=== PATIENT | female | born 2000 | race Caucasian/White ===

== ENCOUNTER → 2019-02-09 | Outpatient (CLI) | payer OTHER ==
[2019-02-09 09:18] LABS: Basophils # (auto) 0 uL; Basophils % (auto) 0.4 % (0.0-2.0); Eosinophils # (auto) 0 uL; Eosinophils % (auto) 0.4 % (0.0-7.0); Hematocrit 45.6 % (36.0-46.0); Hemoglobin 15.7 g/dL (12.2-16.2); Lymphocytes # (auto) 1.9 uL; Lymphocytes % (auto) 23.1 % (10.0-50.0); Mean Corpuscular Hemoglobin 31.7 pg (28.0-32.0); Mean Corpuscular Hgb Conc. 34.3 g/dL (32.0-36.0); Mean Corpuscular Volume 92.5 fL (80.0-100.0); Monocytes # (auto) 0.4 uL; Monocytes % (auto) 4.4 % (0.0-12.0); Neutrophils % (auto) 71.7 % (37.0-80.0); Platelet Count (auto) 393 10^3/uL (140-450); Red Blood Cells 4.93 10^6/uL (4.0-5.20); White Blood Cell 8.3 10^3/uL (4.4-10.8)
[2019-02-09 10:12] LABS: Albumin 4.4 g/dL (3.4-5.0); Calcium 9.2 mg/dL (8.5-10.1); Potassium 3.6 mmol/L (3.5-5.1)
[2019-02-09 10:15] LABS: BUN/Creatinine Ratio 12.9
[2019-02-09 10:18] LABS: Bilirubin, Total 0.5 mg/dL (0.2-1.0); Total Protein 8.5 g/dL (6.4-8.2)
== END | disposition home or self-care (01) ==
LOC: LAB 08:47
PROVIDERS: ATTEND Physician Assistant
DX: Z00.00 Encounter for general adult medical examination without abnormal findings (principal); J30.2 Other seasonal allergic rhinitis; F41.9 Anxiety disorder, unspecified; F95.9 Tic disorder, unspecified
CPT/HCPCS: 36415; 80053; 80061; 85025

== ENCOUNTER 2021-12-02 22:09 | Emergency (ER) | payer MEDICAID, OTHER ==
[~2021-12-02] VITALS: Ht 167.6 cm; Wt 57.3 kg
[2021-12-02 22:30] VITALS: BP 141/88
[2021-12-02 22:51] LABS: Urine Bacteria NONE SEEN /hpf (None Seen); Urine Blood 1+ /uL (Negative); Urine Mucus FEW (None Seen); Urine Specific Gravity 1.025 (1.001-1.035); Urine WBC 12 /hpf (0 - 5)
== END 2021-12-02 23:54 | disposition left against medical advice (07) ==
LOC: ER 22:09
DX: R50.9 Fever, unspecified (principal); Z53.21 Procedure and treatment not carried out due to patient leaving prior to being seen by health care provider; Z20.822 Contact with and (suspected) exposure to COVID-19
CPT/HCPCS: 36415; 81001

== ENCOUNTER 2024-06-10 19:52 | Inpatient (IN) | payer MEDICAID ==
[~2024-06-10] VITALS: Ht 167.6 cm; Wt 58.1 kg
[2024-06-10 20:28] LABS: Sodium 141 mmol/L (136-145)
[2024-06-10 20:29] LABS: Anion Gap 13 (5-15); Basophils # (auto) 0.1 10 ^3/uL (0-0.2); Basophils % (auto) 0.5 % (0.0-2.0); Eosinophils # (auto) 0.1 10 ^3/uL (0-0.8); Eosinophils % (auto) 0.3 % (0.0-7.0); Hematocrit 43.9 % (36.0-46.0); Hemoglobin 14.7 g/dL (12.2-16.2); Lymphocytes # (auto) 3.3 10 ^3/uL (0.4-5.4); Lymphocytes % (auto) 17.2 % (10.0-50.0); Mean Corpuscular Hgb Conc. 33.6 g/dL (32.0-36.0); Mean Corpuscular Volume 92.1 fL (80.0-100.0); Monocytes # (auto) 0.7 10 ^3/uL (0-1.3); Monocytes % (auto) 3.6 % (0.0-12.0); Neutrophils # (auto) 15.1 10 ^3/uL (1.6-8.6); Neutrophils % (auto) 78.4 % (37.0-80.0); Platelet Count (auto) 412 10^3/uL (140-450); Red Blood Cells 4.76 10^6/uL (4.0-5.20); Red Cell Distribution Width 13.5 % (11.8-14.3); White Blood Cell 19.3 10^3/uL (4.4-10.8)
[2024-06-10 20:30] LABS: Calcium 10.1 mg/dL (8.7-10.4)
[2024-06-10 20:34] LABS: BUN/Creatinine Ratio 14.7 (10.0-20.0); Blood Urea Nitrogen 15 mg/dL (9-23)
[2024-06-10 20:35] LABS: Urine Bacteria FEW /hpf (None Seen); Urine Blood Negative /uL (Negative); Urine Clarity Turbid (Clear); Urine Color Light-Yellow (Yellow); Urine Mucus FEW (None Seen); Urine Protein, UAD Negative (Negative); Urine Specific Gravity 1.022 (1.001-1.035); Urine Squamous Epithelial Cell MOD /hpf (<5); Urine Urobilinogen Normal (Negative); Urine WBC 4 /HPF (0-5); Urine pH 5.5 (5.0-9.0)
[2024-06-10 20:35] LABS: Carbon Dioxide 19 mmol/L (20-31); Chloride 109 mmol/L (98-107); Glucose 133 mg/dL (74-106); Potassium 3.1 mmol/L (3.5-5.1)
--- NOTE | 2024-06-10 20:38 | ED.PDOC ---
History of Present Illness HPI Comments 23 y/o F, with a history of anxiety, presents with c/o chest and bilateral arm pain, today. Patient endorses on sudden and unprovoked onset of sternal chest pain that radiates to both of her arms at around 1900, this evening. She reports pain being heavy and burning in quality and having it before in the past. Patient admits to having similar pain the past, with last onset associated with ED visit resulting in her eloping prior to any significant findings being made then. She denies any shortness of breath, dizziness, nausea, vomiting, or other associated symptoms or modifiers at this time. Chief Complaint: Chest Pain Time Seen by MD: 20:10 Reviewed Notes: Nurses Notes, Medications, Allergies Allergies: Coded Allergies: NO KNOWN ALLERGIES (Unverified , 12/02/21) Information Source: Patient Mode of Arrival: Ambulatory Severity: Moderate Timing: Hours Duration: Since onset Prehospital treatment: None Past Medical History PAST MEDICAL HISTORY: Anxiety Surgical History: Denies all surgeries CERTIFIED MEDICAL TRANSCRIPTIONIST History: Denies all CERTIFIED MEDICAL TRANSCRIPTIONIST Hx Family History Family History: Unknown Social History Smoker: Non-Smoker Alcohol: Denies ETOH Use Drugs: Denies Drug Use Lives In: Home All Other Systems: Reviewed and Negative (negative unless otherwise stated in HPI) Physical Exam General Appearance: No Apparent Distress, Normal HEENT: Normal ENT Inspection, Pharynx Normal, TMs Normal Neck: Full Range of Motion, Non-Tender, Normal, Normal Inspection Respiratory: Chest Non-Tender, Lungs Clear, No Accessory Muscle Use, No Respiratory Distress, Normal Breath Sounds Cardiovascular: No Edema, No JVD, No Murmur, No Gallop, Normal Peripheral Pulses, Regular Rate/Rhythm Breast Exam: Deferred Gastrointestinal: No Organomegaly, Non Tender, No Pulsatile Mass, Normal Bowel Sounds, Soft Genitalia: Deferred Pelvic: Deferred Rectal: Deferred Extremities: No calf tenderness, Normal capillary refill, Normal inspection, Normal range of motion, Non-tender, No pedal edema Musculoskeletal : Apperance: Normal Neurologic: Alert, rn clinical II-XII nml as Tested, No Motor Deficits, Normal Affect, Normal Mood, No Sensory Deficits Cerebellar Function: Normal Reflexes: Normal Skin: Dry, Normal Color, Warm Lymphatic: No Adenopathy Was a procedure done? Was a procedure done?: No Differential Dx Considerations may include: WI, Anxiety, ACS, costochondritis, pericarditis, among others X-Ray, Labs, Meds, VS Vital Signs Date Time Temp Pulse Resp B/P (MAP) Pulse Ox O2 Delivery O2 Flow Rate FiO2 06/11/24 00:11 157 100 Room Air 06/11/24 00:11 157 18 135/74 (94) 100 06/11/24 00:00 144 06/10/24 21:26 137 06/10/24 20:02 137 06/10/24 20:00 98.8 137 18 126/94 (105) 98 98.8 Lab Test 06/10/24 21:00 06/10/24 20:10 06/10/24 20:09 Range/Units Troponin I High Sensitivity < 3 L < 3 L </=34 ng/L Urine Color Light-yellow Yellow Urine Clarity Turbid H Clear Urine pH 5.5 5.0-9.0 Urine Specific [place] 1.022 1.001-1.035 Urine Protein Negative Negative Urine Ketones Negative Negative Urine Blood Negative Negative /uL Urine Nitrite Negative Negative Urine Bilirubin Negative Negative Urine Urobilinogen Normal Negative mg/dL Urine Leukocyte Esterase Trace Negative /uL Urine RBC 3 0 - 4 /hpf Urine Microscopic WBC 4 0-5 /HPF Urine Squamous Epithelial Cells Mod <5 /hpf Urine Bacteria Few H None Seen /hpf Urine Mucus Few None Seen Urine Glucose Normal Normal mg/dL Urine Test Negative Negative White Blood Count 19.3 H 4.4-10.8 10^3/uL Red Blood Count 4.76 4.0-5.20 10^6/uL Hemoglobin 14.7 12.2-16.2 g/dL Hematocrit 43.9 36.0-46.0 % Mean Corpuscular Volume 92.1 80.0-100.0 fL Mean Corpuscular Hemoglobin 31.0 28.0-32.0 pg Mean Corpuscular Hemoglobin Concent 33.6 32.0-36.0 g/dL Red Cell Distribution Width 13.5 11.8-14.3 % Platelet Count 412 140-450 10^3/uL Mean Platelet Volume 7.3 6.9-10.8 fL Neutrophils (%) (Auto) 78.4 37.0-80.0 % Lymphocytes (%) (Auto) 17.2 10.0-50.0 % Monocytes (%) (Auto) 3.6 0.0-12.0 % Eosinophils (%) (Auto) 0.3 0.0-7.0 % Basophils (%) (Auto) 0.5 0.0-2.0 % Neutrophils # (Auto) 15.1 H 1.6-8.6 10 ^3/uL Lymphocytes # (Auto) 3.3 0.4-5.4 10 ^3/uL Monocytes # (Auto) 0.7 0-1.3 10 ^3/uL Eosinophils # (Auto) 0.1 0-0.8 10 ^3/uL Basophils # (Auto) 0.1 0-0.2 10 ^3/uL Nucleated Red Blood Cells 0.0 % Sodium Level 141 136-145 mmol/L Potassium Level 3.1 L 3.5-5.1 mmol/L Chloride Level 109 H 98-107 mmol/L Carbon Dioxide Level 19 L 20-31 mmol/L Anion Gap 13 5-15 Blood Urea Nitrogen 15 9-23 mg/dL Creatinine 1.02 0.550-1.02 mg/dL Glomerular Filtration Rate Calc 78 >90 mL/min BUN/Creatinine Ratio 14.7 10.0-20.0 Serum Glucose 133 H 74-106 mg/dL Calcium Level 10.1 8.7-10.4 mg/dL Current Medications Medications (Trade) Dose Ordered Sig/Maria Isabel Route Start Time Stop Time Status Last Admin Al Hydrox/Mg Hydrox/Simethicone (Maalox Plus) 30 ml ONCE ONCE PO 06/10/24 20:30 06/10/24 20:31 DC 06/11/24 00:13 Famotidine (Pepcid Tablet) 20 mg ONCE ONCE PO 06/10/24 20:30 06/10/24 20:31 DC 06/11/24 00:14 Sodium Chloride 3,000 ml @ 1,000 mls/hr Q3H ONCE IV 06/11/24 00:15 06/11/24 03:14 06/11/24 00:15 Cefepime HCl 50 ml @ 12.5 mls/hr ONCE ONCE IV 06/11/24 00:30 06/11/24 04:29 06/11/24 01:35 Vancomycin HCl 200 ml @ 200 mls/hr ONCE ONCE IV 06/11/24 00:30 06/11/24 01:29 DC 06/11/24 00:30 Diphenhydramine HCl (Benadryl Injection) 25 mg ONCE ONCE IV 06/11/24 01:30 06/11/24 01:31 DC 06/11/24 01:[address] [address] Ph: [phone] DIAGNOSTIC IMAGING Diagnostic Imaging Report : [id number] Signed PATIENT: LG HUYNH ACCT: [id number] UNIT: [id number] : 2000 LOC: ER ROOM / BED: / AGE / SEX: 23 / F ADM STATUS: REG ER SERVICE 2316 ORDERING PHYSICIAN: BHUMIKA JACKSON MD PROCEDURE(s): CXR2 - CHEST TWO VIEWS ROUTINE REASON: chest pain ORDER NUMBER(s): [id number], ACCESSION NUMBER(s): [id number] EXAM: XY CHEST TWO VIEWS ROUTINE CLINICAL HISTORY: chest pain TECHNIQUE: Frontal and lateral views of the chest WID: COMPARISON: None FINDINGS: Lines and tubes: None Chest: The heart size and pulmonary vasculature is within normal limits. No pleural effusion, pneumothorax, or consolidation. The osseous structures are grossly intact. IMPRESSION: No acute cardiopulmonary abnormality. ATED BY: GAYATRI ALVAREZ MD DICTATED DATE/TIME: 06/11/243 SIGNED BY: GAYATRI ALVAREZ MD SIGNED DATE/TIME: 06/11/24 0004 CC: Time of 1ST Reevaluation: 20:50 Reevaluation 1ST: Unchanged Patient Education/Counseling: Diagnosis, Treatment Family Education/Counseling: No Family Present Departure 1 Departure Time of Disposition: 01:39 (Patient initially presented with chest pain hour which has been have resolved. Patient is still persistently tachy with an elevated white count. We will empirically cover patient with antibiotics and fluids admit patient for further workup) Impression: Primary Impression: Acute chest pain Additional Impressions: Sinus tachycardia Elevated white blood cell count Qualified Codes: D72.829 - Elevated white blood cell count, unspecified Disposition: 09 ADMITTED INPATIENT Admit to: Med Surg Condition: Serious Critical Care Note Critical Care Time?: No Stability Stability form required: No Heart Score Heart Score: Heart Score Response (Comments) Value History N/A 0 EKG Normal 0 Age <45 0 Risk Factors No known risk factors 0 Troponin Normal limit 0 Total 0 I personally scribed for BHUMIKA JACKSON MD ([email or web address]) on 06/10/24 at 20:38. Electronically submitted by Abdullahi Urias ([email or web address]). I personally scribed for BHUMIKA JACKSON MD ([email or web address]) on 06/11/24 at 00:49. Electronically submitted by Abdullahi Urias ([email or web address]). BHUMIKA JACKSON MD Jun 10, 2024 20:38
--- NOTE | 2024-06-11 00:06 | DVH ---
EXAM: XY CHEST TWO VIEWS ROUTINE CLINICAL HISTORY: chest pain TECHNIQUE: Frontal and lateral views of the chest WID: COMPARISON: None FINDINGS: Lines and tubes: None Chest: The heart size and pulmonary vasculature is within normal limits. No pleural effusion, pneumothorax, or consolidation. The osseous structures are grossly intact. IMPRESSION: No acute cardiopulmonary abnormality.
[2024-06-11] MEDS: MAALOX PLUS or MAALOX 30 ML PO ONE (00:13)
[2024-06-11] MEDS: FAMOTIDINE 20 MG TAB PO ONE (00:14)
[2024-06-11] MEDS: SODIUM CHLORIDE 0.9% 3,000 ML IV ONE (00:15)
[2024-06-11] MEDS: VANCOMYCIN 1GM/250ML KIT 200 ML IV ONE (00:30)
[2024-06-11] MEDS: CEFEPIME 2GM/50ML NS 50 ML IV ONE (01:35)
[2024-06-11] MEDS: diphenhdrAMINE HCL 50 MG/1 ML VL IV ONE (01:35)
[2024-06-11 01:58] VITALS: RESP 20; O2SAT 99
[2024-06-11] MEDS ORDERED: MORPHINE SULFATE INJ 2 MG/ml SYRG IV PRN (03:15)
[2024-06-11] MEDS ORDERED: ACETAMINOPHEN 325 MG TAB PO PRN (03:15)
[2024-06-11] MEDS ORDERED: ONDANSETRON HCL 4 MG/2 ML VIAL IV PRN (03:15)
[2024-06-11] MEDS ORDERED: NITROGLYCERIN 0.4 MG SL TAB SL PRN (03:15)
--- NOTE | 2024-06-11 03:27 | DVHHP2 ---
History of Present Illness Reason for Visit: Chest pain History of Present Illness 23-year-old female presents for evaluation of chest pain. Patient initially presented with complaints of substernal sharp chest pain that is intermittent has been ongoing for more than a year. 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 Patient was noted to be tachycardic with high white blood cell count. She currently denies any chest pain. She does report left upper quadrant abdominal pain that has been ongoing for months as well. Denies nausea or vomiting. No shortness a breath. No other acute complaints reported. Past Medical History Anxiety Past Surgical History Denies Family History Noncontributory Smoke: No ALCOHOL: none Drugs: None Lives: with Family Review of Systems Review of Systems Review of systems are currently negative otherwise addressed in HPI. Allergies: Coded Allergies: NO KNOWN ALLERGIES (Unverified , 12/02/21) Medications Current Medications Medications Dose Ordered Sig/Maria Isabel Route Start Time Stop Time Status Last Admin Dose Admin Ceftriaxone Sodium 50 ml @ 100 mls/hr DAILY@09 IV 06/11/24 09:00 Ondansetron HCl 4 mg Q4HP PRN IV 06/11/24 03:15 UNV Acetaminophen 650 mg Q6HP PRN PO 06/11/24 03:15 Nitroglycerin 0.4 mg Q5MINP PRN SL 06/11/24 03:15 Morphine Sulfate 2 mg Q30M PRN IV 06/11/24 03:15 Exam Vital Signs Vital Signs Date Time Temp Pulse Resp B/P (MAP) Pulse Ox O2 Delivery O2 Flow Rate FiO2 06/11/24 01:58 20 99 Room Air* 0 21 06/11/24 00:11 157 06/11/24 00:11 135/74 (94) 06/10/24 20:00 98.8 98.8 Exam Gen: 23-year-old female in no apparent distress. Skin: Warm, dry, normal color and texture, no rash. HEENT: Normocephalic atraumatic, mucous membranes moist and pink. Neck: Cervical and supraclavicular nodes normal without enlargement, trachea is midline, thyroid gland is normal without masses. Pulmonary: Clear to auscultation and percussion bilaterally. Cardiac: Sinus tachycardia Abdomen: Soft, left upper quadrant abdominal tenderness, nondistended, bowel sounds present all 4 quadrants, no guarding, no rigidity, no organomegaly. Extremities: No cyanosis, clubbing, no edema Neuro: Cranial nerves II through XII grossly intact, normal affect and speech, no focal motor deficits. Labs/Xrays ORDERING PHYSICIAN: BHUMIKA JACKSON MD PROCEDURE(s): CXR2 - CHEST TWO VIEWS ROUTINE REASON: chest pain ORDER NUMBER(s): [id number], ACCESSION NUMBER(s): [id number] EXAM: XY CHEST TWO VIEWS ROUTINE CLINICAL HISTORY: chest pain TECHNIQUE: Frontal and lateral views of the chest WID: COMPARISON: None FINDINGS: Lines and tubes: None Chest: The heart size and pulmonary vasculature is within normal limits. No pleural effusion, pneumothorax, or consolidation. The osseous structures are grossly intact. IMPRESSION: No acute cardiopulmonary abnormality. Labs Test 06/10/24 21:00 06/10/24 20:10 06/10/24 20:09 Range/Units Troponin I High Sensitivity < 3 L </=34 ng/L Urine Color Light-yellow Yellow Urine Clarity Turbid H Clear Urine pH 5.5 5.0-9.0 Urine Specific [place] 1.022 1.001-1.035 Urine Protein Negative Negative Urine Ketones Negative Negative Urine Blood Negative Negative /uL Urine Nitrite Negative Negative Urine Bilirubin Negative Negative Urine Urobilinogen Normal Negative mg/dL Urine Leukocyte Esterase Trace Negative /uL Urine RBC 3 0 - 4 /hpf Urine Microscopic WBC 4 0-5 /HPF Urine Squamous Epithelial Cells Mod <5 /hpf Urine Bacteria Few H None Seen /hpf Urine Mucus Few None Seen Urine Glucose Normal Normal mg/dL Urine Test Negative Negative White Blood Count 19.3 H 4.4-10.8 10^3/uL Red Blood Count 4.76 4.0-5.20 10^6/uL Hemoglobin 14.7 12.2-16.2 g/dL Hematocrit 43.9 36.0-46.0 % Mean Corpuscular Volume 92.1 80.0-100.0 fL Mean Corpuscular Hemoglobin 31.0 28.0-32.0 pg Mean Corpuscular Hemoglobin Concent 33.6 32.0-36.0 g/dL Red Cell Distribution Width 13.5 11.8-14.3 % Platelet Count 412 140-450 10^3/uL Mean Platelet Volume 7.3 6.9-10.8 fL Neutrophils (%) (Auto) 78.4 37.0-80.0 % Lymphocytes (%) (Auto) 17.2 10.0-50.0 % Monocytes (%) (Auto) 3.6 0.0-12.0 % Eosinophils (%) (Auto) 0.3 0.0-7.0 % Basophils (%) (Auto) 0.5 0.0-2.0 % Neutrophils # (Auto) 15.1 H 1.6-8.6 10 ^3/uL Lymphocytes # (Auto) 3.3 0.4-5.4 10 ^3/uL Monocytes # (Auto) 0.7 0-1.3 10 ^3/uL Eosinophils # (Auto) 0.1 0-0.8 10 ^3/uL Basophils # (Auto) 0.1 0-0.2 10 ^3/uL Nucleated Red Blood Cells 0.0 % Sodium Level 141 136-145 mmol/L Potassium Level 3.1 L 3.5-5.1 mmol/L Chloride Level 109 H 98-107 mmol/L Carbon Dioxide Level 19 L 20-31 mmol/L Anion Gap 13 5-15 Blood Urea Nitrogen 15 9-23 mg/dL Creatinine 1.02 0.550-1.02 mg/dL Glomerular Filtration Rate Calc 78 >90 mL/min BUN/Creatinine Ratio 14.7 10.0-20.0 Serum Glucose 133 H 74-106 mg/dL Calcium Level 10.1 8.7-10.4 mg/dL Assessment/Plan Assessment/Plan Assessment Sinus tachycardia Leukocytosis Abdominal pain Plan Admit the patient to telemetry to the hospitalist Cardiology consultation Echocardiogram pending CT abdomen pelvis pending Rocephin Blood cultures pending Continue treatment per orders. Plan discussed with: Patient My Orders Orders - SEBASTIÁN LING AGACNP Procedure Category Date Status Time Ct Ab Pel Wo Con-No CT 06/11/24 Logged Oral Or Iv 03:11 Lactic Acid W/ Reflex LAB 06/11/24 Logged Order 03:11 Blood Culture CARROL 06/11/24 Logged 03:11 Thyroid Stimulating LAB 06/11/24 Logged Hormone 03:11 Ceftriaxone 1gm/50ml PHA 06/11/24 In Process D5w (Rocephin) 09:00 Basic Metabolic Panel LAB 06/12/24 Verified 04:00 * Cardiology Consult CONS 06/11/24 Transmitted 03:11 Admit ADMIT 06/11/24 Transmitted 03:11 Ondansetron Hcl PHA 06/11/24 Pending (Zofran) 03:15 Complete Blood Count LAB 06/12/24 Verified 04:00 Echo 2d Mode Cardiac US 06/11/24 Logged DOP 03:11 Condition: Fair MARIAH 06/11/24 In Process 03:11 Acetaminophen Tablet PHA 06/11/24 In Process (Tylenol Tablet) 03:15 Bedrest With Bathroom MARIAH 06/11/24 In Process Privileg 03:11 Nitroglycerin PHA 06/11/24 In Process Sublingual (Ntrostat 03:15 Morphine Sulfate PHA 06/11/24 In Process Injection 03:15 Stat Ekg For Chest [facility] 06/11/24 In Process Pain 03:11 Notify Md Of Changes [facility] 06/11/24 In Process From Base 03:11 Extension Specialist For [facility] 06/11/24 In Process 24 Hours 03:11 Emergency Dysrhythmia [facility] 06/11/24 In Process Protocol 03:11 Rhythm Strips Once [facility] 06/11/24 In Process Every Shift 03:11 Oxygen By Nasal RT 06/11/24 Transmitted Cannula 03:11 Date of Service: Jun 11, 2024 Billing Provider: SEBASTIÁN LING Common Visit Codes: [id number] INP/OBS CARE (HIGH) SEBASTIÁN LING Jun 11, 2024 03:27
--- NOTE | 2024-06-11 04:44 | DVH ---
Exam: CT CT AB PEL WO CON-NO ORAL OR IV History: abd. pain Comparison Study: None available at time of dictation. Technique: Multidetector spiral CT of the abdomen and pelvis was performed from lung bases to pubic s ymphysis. Imaging was performed without intravenous contrast. Coronal and sagittal multiplanar reform ats were obtained from the axial data set by the technologist. Radiation Dose : 1. Abdomen/Pelvis: CTDIvol 5.51 mGy, DLP 290.15 mGy*cm. Findings: Evaluation of vasculature and solid organs is limited due to lack of intravenous contrast use. Lung Bases: Lung bases are clear. Visualized portions of the heart and pericardium are unremarkable. Liver: The liver is normal in size. No focal lesions. Gallbladder and Biliary Tree: The gallbladder is unremarkable No intrahepatic or extrahepatic biliar y ductal dilatation. Spleen: Unremarkable Pancreas: The pancreas is grossly unremarkable. Adrenal Glands: Unremarkable Kidneys: Kidneys are unremarkable without calculi or hydronephrosis. GI tract: The stomach is grossly normal in appearance. No evidence of small bowel wall thickening or abnormal dilatation to suggest bowel obstruction. Diffusely throughout colon. The appendix is visuali zed and is normal. Peritoneum/mesentery/retroperitoneum. No evidence of free intraperitoneal air. No ascites. No evidenc e of suspicious lymphadenopathy. Abdominal Wall: Unremarkable. Vasculature: The visualized abdominal aorta is normal in size and caliber. Evaluation of abdominal a nd pelvic vessels is limited due to lack of intravenous contrast. Urinary Bladder: Grossly unremarkable for degree of distention. Pelvic Organs: Unremarkable Musculoskeletal: No aggressive focal bony lesions, acute fractures or dislocation. IMPRESSION: 1. No acute abdominal or pelvic findings. 2. Copious stool throughout colon may indicate constipation in the appropriate clinical setting.
--- NOTE | 2024-06-11 06:56 | ECG ---
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
--- NOTE | 2024-06-11 06:56 | ECG ---
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
--- NOTE | 2024-06-11 07:16 | ECG ---
[facility] Test Date: 2024-06-11 Test Time: 00:00:39 Pat Name: LG HUYNH Department: ER Room: [address] [place] [address] Gender: F Scowman: ER : 2000 Requested By: BHUMIKA JACKSON Order Number: [id number] Reading MD: Marc Cannon Measurements Intervals [place] Rate: 144 P: 76 FL: 135 QRS: -68 QRSD: 100 T: 46 QT: 278 QTc: 431 Interpretive Statements Sinus tachycardia Markedly posterior QRS axis RSR' in V1 or V2, probably normal variant Borderline Q waves in lateral leads Electronically Signed On 06-13-2024 17:31:56 PDT by Marc Cannon Please click the below link to view image of tracing.
[2024-06-11 08:00] VITALS: PULSE 110; RESP 15; O2SAT 98
[2024-06-11] MEDS: POTASSIUM EFFERVESENT TAB 25 MEQ PO ONE (08:17)
[2024-06-11 08:33] LABS: COVID19 ANTIGEN SOFIA FIA NEGATIVE (NEGATIVE); Rapid Influenza A Negative (Negative); Rapid Influenza B Negative (Negative)
[2024-06-11] MEDS: cefTRIAXone 1GM/50ML D5W 50 ML IV SCH (09:00)
[2024-06-11 09:42] LABS: Amphetamine Screen, Urine Neg (NEGATIVE); Barbiturate Scree,Urine Neg (NEGATIVE); Benzodiazephine Screen, Urine Neg (NEGATIVE); Cannabinoid Screen, Urine Neg (NEGATIVE); Cocaine Screen, Urine Neg (NEGATIVE); Opiate Scree,Urine Neg (NEGATIVE); Phencyclidine Screen, Urine Neg (NEGATIVE)
[2024-06-11 12:19] VITALS: BP 112/66; PULSE 97; RESP 12; TEMP 98.5; O2SAT 97
--- NOTE | 2024-06-11 17:48 | DVHDSRES ---
Discharge Summary Date of Admission Resident Creating Document: SRIRAM URIAS Jun 11, 2024 at 03:11 Date of Discharge: Jun 11, 2024 Labs/Diagnostic Data: Laboratory Results Test 06/11/24 07:48 06/11/24 03:29 06/10/24 21:00 06/10/24 20:10 Influenza Type A Antigen Negative (Negative) Influenza Type B Antigen Negative (Negative) SARS-CoV-2 Antigen (Rapid) Negative (NEGATIVE) Lactic Acid Level 1.8 mmol/L (0.4-2.0) Thyroid Stimulating Hormone (TSH) 1.04 uIU/mL (0.55-4.78) Troponin I High Sensitivity < 3 ng/L (</=34) Urine Color Light-yellow (Yellow) Urine Clarity Turbid (Clear) Urine pH 5.5 (5.0-9.0) Urine Specific Palmer 1.022 (1.001-1.035) Urine Protein Negative (Negative) Urine Ketones Negative (Negative) Urine Blood Negative /uL (Negative) Urine Nitrite Negative (Negative) Urine Bilirubin Negative (Negative) Urine Urobilinogen Normal mg/dL (Negative) Urine Leukocyte Esterase Trace /uL (Negative) Urine RBC 3 /hpf (0 - 4) Urine Microscopic WBC 4 /HPF (0-5) Urine Squamous Epithelial Cells Mod /hpf (<5) Urine Bacteria Few /hpf (None Seen) Urine Mucus Few (None Seen) Urine Glucose Normal mg/dL (Normal) Urine Test Negative (Negative) Urine Opiates Screen Neg (NEGATIVE) Urine Fentanyl Screen Neg (NEGATIVE) Urine Barbiturates Screen Neg (NEGATIVE) Urine Phencyclidine Screen Neg (NEGATIVE) Urine Amphetamines Screen Neg (NEGATIVE) Urine Benzodiazepines Screen Neg (NEGATIVE) Urine Cocaine Screen Neg (NEGATIVE) Urine Cannabinoids Screen Neg (NEGATIVE) Test 06/10/24 20:09 White Blood Count 19.3 10^3/uL (4.4-10.8) Red Blood Count 4.76 10^6/uL (4.0-5.20) Hemoglobin 14.7 g/dL (12.2-16.2) Hematocrit 43.9 % (36.0-46.0) Mean Corpuscular Volume 92.1 fL (80.0-100.0) Mean Corpuscular Hemoglobin 31.0 pg (28.0-32.0) Mean Corpuscular Hemoglobin Concent 33.6 g/dL (32.0-36.0) Red Cell Distribution Width 13.5 % (11.8-14.3) Platelet Count 412 10^3/uL (140-450) Mean Platelet Volume 7.3 fL (6.9-10.8) Neutrophils (%) (Auto) 78.4 % (37.0-80.0) Lymphocytes (%) (Auto) 17.2 % (10.0-50.0) Monocytes (%) (Auto) 3.6 % (0.0-12.0) Eosinophils (%) (Auto) 0.3 % (0.0-7.0) Basophils (%) (Auto) 0.5 % (0.0-2.0) Neutrophils # (Auto) 15.1 10 ^3/uL (1.6-8.6) Lymphocytes # (Auto) 3.3 10 ^3/uL (0.4-5.4) Monocytes # (Auto) 0.7 10 ^3/uL (0-1.3) Eosinophils # (Auto) 0.1 10 ^3/uL (0-0.8) Basophils # (Auto) 0.1 10 ^3/uL (0-0.2) Nucleated Red Blood Cells 0.0 % Sodium Level 141 mmol/L (136-145) Potassium Level 3.1 mmol/L (3.5-5.1) Chloride Level 109 mmol/L (98-107) Carbon Dioxide Level 19 mmol/L (20-31) Anion Gap 13 (5-15) Blood Urea Nitrogen 15 mg/dL (9-23) Creatinine 1.02 mg/dL (0.550-1.02) Glomerular Filtration Rate Calc 78 mL/min (>90) BUN/Creatinine Ratio 14.7 (10.0-20.0) Serum Glucose 133 mg/dL (74-106) Calcium Level 10.1 mg/dL (8.7-10.4) Other Laboratory Tests 06/10/24 20:09 Brief Hx & Hospital Course: Hospital course: 23-year-old female past medical history of panic attack, anxiety and depression, who presents for evaluation of chest pain (cardiac like chest pain ) patient reports pain is located in the middle of the chest and radiates to the left arm, is described as pressure-like moderate to severe intensity and lasts for more than 20 minutes could happen during physical activity or even at rest. She reports not being seen by a mlt previously. She does report left and right flank pain pain that has been ongoing for months as well. Denies nausea or vomiting. No shortness a breath. No other acute complaints reported. Laboratory findings were unremarkable, troponin levels were negative and EKG shows sinus tachycardia. Patient remained stable during the hospital stay, she was advised to follow up with the mlt and primary care doctor within 2 weeks. She was also advised to resume psychotherapy and follow up with a psychiatrist in order to get treatment for panic attacks, anxiety and depression. Disposition Discharge to home. Operations or Procedures EXAM: Two-dimensional and M-mode echocardiogram with Doppler and color Doppler. Blood Pressure: 112/63 mmHg INDICATION Chest Pain Tachycardia RISK FACTORS Height: 66, Weight: 128 DIMENSIONS LVDd 4.1 (3.8-5.7cm) LA (2D) 3.0 (1.9-4.0cm) Aortic Root 2.9 (2.0- 3.7cm) LVDs 2.8 (2.5-4.0cm) LA (MM) (1.9-4.0cm) Aortic Cusp Exc 1.7 (1.5- 2.0cm) EF (%) 60.0 (55-70%) Rt. Atrium 3.1 (1.9-4.0cm) Asc. Aorta cm IVSd 0.8 (0.7-1.1cm) RV (D) (1.8-2.4cm) PWd 0.8 (0.7-1.1cm) Mitral Valve Mitral Mitral Stenosis E wave 1.32m/s MV Mean GR. mmHg E/A ratio 0.0 2D MVA cm2 Aortic Valve Aortic Valve Aortic Stenosis V1 1.15m/s AO Mean GR. 5mmHg V2 1.52m/s AO Peak GR. 9mmHg LVOT Diameter 2.1 (1.8-2.4cm) Doppler MADAI 2.62cm2 Pulmonic Valve V2 1.01m/s Tricuspid Valve TR Velocity 2.42m/s RVSP 28mmHg [facility] [id number] [place] [id number] Ph: [phone] DIAGNOSTIC IMAGING Diagnostic Imaging Report : [id number] Signed PATIENT: LG HUYNH EACCT: [id number] UNIT: [id number] : 2000 LOC: OVERFLOW ROOM / BED: [facility] / A AGE / SEX: 23 / F ADM STATUS: ADM IN SERVICE 0 ORDERING PHYSICIAN: SEBASTIÁN LING PROCEDURE(s): ABPL - CT AB PEL WO CON-NO ORAL OR IV REASON: abd. pain ORDER NUMBER(s): [id number], ACCESSION NUMBER(s): [id number] Exam: CT CT AB PEL WO CON-NO ORAL OR IV History: abd. pain Comparison Study: None available at time of dictation. Technique: Multidetector spiral CT of the abdomen and pelvis was performed from lung bases to pubic symphysis. Imaging was performed without intravenous contrast. Coronal and sagittal multiplanar reformats were obtained from the axial data set by the technologist. Radiation Dose : 1. Abdomen/Pelvis: CTDIvol 5.51 mGy, DLP 290.15 mGy*cm. Findings: Evaluation of vasculature and solid organs is limited due to lack of intravenous contrast use. Lung Bases: Lung bases are clear. Visualized portions of the heart and pericardium are unremarkable. Liver: The liver is normal in size. No focal lesions. Gallbladder and Biliary Tree: The gallbladder is unremarkable No intrahepatic or extrahepatic biliary ductal dilatation. Spleen: Unremarkable Pancreas: The pancreas is grossly unremarkable. Adrenal Glands: Unremarkable Kidneys: Kidneys are unremarkable without calculi or hydronephrosis. GI tract: The stomach is grossly normal in appearance. No evidence of small bowel wall thickening or abnormal dilatation to suggest bowel obstruction. Diffusely throughout colon. The appendix is visualized and is normal. Peritoneum/mesentery/retroperitoneum. No evidence of free intraperitoneal air. No ascites. No evidence of suspicious lymphadenopathy. Abdominal Wall: Unremarkable. Vasculature: The visualized abdominal aorta is normal in size and caliber. Evaluation of abdominal and pelvic vessels is limited due to lack of intravenous contrast. Urinary Bladder: Grossly unremarkable for degree of distention. Pelvic Organs: Unremarkable Musculoskeletal: No aggressive focal bony lesions, acute fractures or dislocation. IMPRESSION: 1. No acute abdominal or pelvic findings. 2. Copious stool throughout colon may indicate constipation in the appropriate clinical setting. ATED BY: PAUL SAMUEL MD DICTATED DATE/TIME: 06/11/24440 SIGNED BY: PAUL SAMUEL MD SIGNED DATE/TIME: 06/11/24440 CC: [address] [address] Ph: [phone] DIAGNOSTIC IMAGING Diagnostic Imaging Report : [id number] Signed PATIENT: LG HUYNH EACCT: [id number] UNIT: [id number] : 2000 LOC: ER ROOM / BED: / AGE / SEX: 23 / F ADM STATUS: REG ER SERVICE ORDERING PHYSICIAN: BHUMIKA JACKSON MD PROCEDURE(s): CXR2 - CHEST TWO VIEWS ROUTINE REASON: chest pain ORDER NUMBER(s): [id number], ACCESSION NUMBER(s): [id number] EXAM: XY CHEST TWO VIEWS ROUTINE CLINICAL HISTORY: chest pain TECHNIQUE: Frontal and lateral views of the chest WID: COMPARISON: None FINDINGS: Lines and tubes: None Chest: The heart size and pulmonary vasculature is within normal limits. No pleural effusion, pneumothorax, or consolidation. The osseous structures are grossly intact. IMPRESSION: No acute cardiopulmonary abnormality. ATED BY: GAYATRI ALVAREZ MD DICTATED DATE/TIME: 06/11/243 SIGNED BY: GAYATRI ALVAREZ MD SIGNED DATE/TIME: 06/11/24 0004 CC: Condition at Discharge: Fair Final Diagnosis/Problems List SINUS TACHYCARDIA LEUKOCYTOSIS , UNDETERMINED ETIOLOGY ASYMPTOMATIC BACTERIURIA Discharge Disposition: Home SNF Discharge Will this Physician continue t: No Discharge Instruct/Medications Diet: Cardiac 2g Na,low cholest Activity: No Restrictions, As Tolerated Follow Up/Referral: FOLLOW UP WITH PCP WITHIN 2 WEEKS DC CLINIC FOLLOW UP WITH CARDIOLOGY WITHIN 2 WEEKS Medications: NO MEDS Discharge Statement: "Patient was advised to return to the ER or call 911 if any headaches, dizziness, shortness of breath, chest pain, abdominal pain, bleeding, fevers, or worsening of medical condition. Patient was counseled about treatment plan, medications, possible side effects, patientverbalized understanding. All questions were answered to the best of my ability. This discharge took greater then 30 minutes in planning, reviewing documentation, counseling the patient, and discussing with other team members." ASSESSMENT ASSESSMENT Assessment SINUS TACHYCARDIA LEUKOCYTOSIS , UNDETERMINED ETIOLOGY ASYMPTOMATIC BACTERIURIA Date of Service: Jun 11, 2024 Billing Provider: ABIODUN CHAND MD Common Visit Codes: 33517-IKC/OBS DISCH DAY >30min SRIRAM URIAS RESIDENT Jun 11, 2024 17:48 ABIODUN CHAND MD Jun 12, 2024 12:07
--- NOTE | 2024-06-13 10:54 | DVHSR ---
APPROVED REPORT EXAM: Two-dimensional and M-mode echocardiogram with Doppler and color Doppler. Blood Pressure: 112/63 mmHg INDICATION Chest Pain Tachycardia RISK FACTORS Height: 66, Weight: 128 DIMENSIONS LVDd4.1 (3.8-5.7cm)LA (2D)3.0 (1.9-4.0cm)Aortic Root2.9 (2.0-3.7cm) LVDs2.8 (2.5-4.0cm)LA (MM) (1.9-4.0cm)Aortic Cusp Exc1.7 (1.5-2.0cm) EF (%) 60.0 (55-70%)Rt. Atrium3.1 (1.9-4.0cm)Asc. Aorta cm IVSd0.8 (0.7-1.1cm)RV (D) (1.8-2.4cm) PWd0.8 (0.7-1.1cm) Mitral Valve MitralMitral Stenosis E wave1.32m/sMV Mean GR.mmHg E/A ratio0.02D MVAcm2 Aortic Valve Aortic ValveAortic Stenosis V11.15m/Constanza Mean GR.5mmHg V21.52m/Constanza Peak GR.9mmHg LVOT Diameter2.1 (1.8-2.4cm)Doppler AVA2.62cm2 Pulmonic Valve V21.01m/s Tricuspid Valve TR Velocity2.42m/s [id number] Conclusion Technically good study. Sinus rhythm. Normal chamber sizes. Valves are normal. EF of 60% with normal RV function. Normal Doppler. Mild TR. No pericardial effusion masses or vegetations.
== END 2024-06-11 12:40 | disposition home or self-care (01) | DRG 203 ==
LOC: ER 20:02 → OVERFLOW 06-11 03:11
PROVIDERS: ADMIT Student in an Organized Health Care Education/Training Program; ATTEND Emergency Medicine
DX: R07.89 Other chest pain (principal); D72.829 Elevated white blood cell count, unspecified; R00.0 Tachycardia, unspecified; R82.71 Bacteriuria; F41.9 Anxiety disorder, unspecified; F32.A Depression, unspecified; Z20.822 Contact with and (suspected) exposure to COVID-19
CPT/HCPCS: 36415; 71046; 74176; 80048; 80307; 81001; 81025; 83605; 84443; 84484; 85025; 87040; 87426; 87804; 93005; 93306; 96365; 96367; 96375; G0378; J0692

== ENCOUNTER → 2024-06-23 | Outpatient (CLI) | payer MEDICAID ==
[2024-06-23 10:03] LABS: Eosinophils # (auto) 0.1 10 ^3/uL (0-0.8); Eosinophils % (auto) 1.1 % (0.0-7.0); Hemoglobin 15.3 g/dL (12.2-16.2); Lymphocytes # (auto) 2.4 10 ^3/uL (0.4-5.4); Mean Corpuscular Hemoglobin 31.7 pg (28.0-32.0); Monocytes # (auto) 0.3 10 ^3/uL (0-1.3); White Blood Cell 7.9 10^3/uL (4.4-10.8)
[2024-06-23 10:05] LABS: Basophils # (auto) 0.1 10 ^3/uL (0-0.2); Basophils % (auto) 0.7 % (0.0-2.0); Hematocrit 43.2 % (36.0-46.0); Mean Corpuscular Hgb Conc. 35.3 g/dL (32.0-36.0); Mean Corpuscular Volume 89.9 fL (80.0-100.0); Neutrophils % (auto) 63.2 % (37.0-80.0); Platelet Count (auto) 466 10^3/uL (140-450); Red Blood Cells 4.81 10^6/uL (4.0-5.20); Red Cell Distribution Width 13.4 % (11.8-14.3)
[2024-06-23 10:13] LABS: Urine Bacteria FEW /hpf (None Seen); Urine Blood Negative /uL (Negative); Urine Clarity Turbid (Clear); Urine Color Yellow (Yellow); Urine Mucus FEW (None Seen); Urine Protein, UAD TRACE (Negative); Urine Specific Gravity 1.027 (1.001-1.035); Urine Squamous Epithelial Cell MOD /hpf (<5); Urine Urobilinogen Normal (Negative); Urine WBC 3 /HPF (0-5); Urine pH 6.5 (5.0-9.0)
[2024-06-23 10:45] LABS: Alanine Aminotransferase 11 U/L (7-40); Alkaline Phosphatase 61 U/L (46-116); Anion Gap 10 (5-15); BUN/Creatinine Ratio 14.8 (10.0-20.0); Bilirubin, Total 0.4 mg/dL (0.2-1.0); Blood Urea Nitrogen 13 mg/dL (9-23); Carbon Dioxide 25 mmol/L (20-31); Chloride 106 mmol/L (98-107); Potassium 3.9 mmol/L (3.5-5.1); Sodium 141 mmol/L (136-145); Total Protein 8.1 g/dL (5.7-8.2)
[2024-06-23 10:46] LABS: Albumin 5.3 g/dL (3.2-4.8); Aspartate Aminotransferase 13 U/L (13-40); Calcium 10.5 mg/dL (8.7-10.4); Glucose 121 mg/dL (74-106)
== END | disposition home or self-care (01) ==
LOC: LAB 09:26
PROVIDERS: ATTEND Nurse Practitioner Family
DX: D72.829 Elevated white blood cell count, unspecified (principal)
CPT/HCPCS: 36415; 80053; 81001; 85025